=== PATIENT | female | born 1955 | race Caucasian/White ===

== ENCOUNTER 2018-04-15 15:50 | Observation (INO) | payer OTHER ==
[2018-04-15] MEDS ORDERED: hydrALAzine 20 MG INJ IV (17:30)
[2018-04-15] MEDS ORDERED: ACETAMINOPHEN 325 MG TAB PO (17:30)
[2018-04-15] MEDS ORDERED: NACL 0.9% 3 ML SYG IV (17:30)
[2018-04-15] MEDS ORDERED: ALBUTEROL/IPRATROPIUM (NEB) 3 ML AMP HHN (17:30)
[2018-04-15] MEDS ORDERED: LORAZEPAM 2 MG INJ IV (17:30)
[2018-04-15] MEDS ORDERED: ONDANSETRON 4 MG INJ IV (17:30)
[2018-04-15 18:17] LABS: HEMOGLOBIN A1C 4.9 % (0-5.9)
[2018-04-15 18:21] LABS: CREATINE KINASE 52 IU/L (23-200)
[2018-04-15 18:35] LABS: CK INDEX 0.4; CK-MB 0.23 ng/ml (0.0-2.4)
[2018-04-15 18:40] LABS: FREE T4 (FREE THYROXINE) 1.56 ng/dl (0.78-2.44)
[2018-04-15] MEDS: ZOLPIDEM 5 MG TAB PO (21:10)
[2018-04-15 22:43] LABS: AMPHETAMINE/METHAMPHETAMINE Negative (NEGATIVE); BARBITURATES Negative (NEGATIVE); BENZODIAZEPINES Negative (NEGATIVE); CANNABINOIDS Negative (NEGATIVE); COCAINE Negative (NEGATIVE); OPIATES Negative (NEGATIVE)
[2018-04-16 06:38] LABS: ADD MAN DIFF? NO
[2018-04-16 06:49] LABS: BASOPHILS % 0.5 % (0.0-2.0); EOSINOPHILS # 0.1 10^3/ul (0.0-0.5); EOSINOPHILS % 2.7 % (0.0-7.0); HEMATOCRIT 35.4 % (37.0-47.0); HEMOGLOBIN 12.2 g/dl (12.0-16.0); IMMATURE GRANS #M 0.02 10^3/ul; IMMATURE GRANS % (M) 0.5 %; LYMPHOCYTES # 2.1 10^3/ul (0.8-2.9); LYMPHOCYTES % 48.1 % (15.0-51.0); MEAN CORPUSCULAR HEMOGLOBIN 33.7 pg (29.0-33.0); MEAN CORPUSCULAR HGB CONC 34.5 g/dl (32.0-37.0); MEAN CORPUSCULAR VOLUME 97.8 fl (82.0-101.0); MEAN PLATELET VOLUME 9.7 fl (7.4-10.4); MONOCYTE # 0.2 10^3/ul (0.3-0.9); MONOCYTES % 5.2 % (0.0-11.0); NEUTROPHIL # 1.9 10^3/ul (1.6-7.5); PLATELET COUNT 101 10^3/UL (140-415); RED BLOOD COUNT 3.62 10^6/ul (4.20-5.40); RED CELL DISTRIBUTION WIDTH 15.6 % (11.5-14.5)
[2018-04-16 06:49] LABS: WHITE BLOOD COUNT 4.4 10^3/ul (4.8-10.8)
[2018-04-16 07:07] LABS: CHOL/HDL RATIO 1.9 RATIO; CHOLESTEROL 157 mg/dl (100-200); CREATINE KINASE 62 IU/L (23-200); HDL CHOLESTEROL 79 mg/dl (35-98); LDL CHOLESTEROL,CALCULATED 61 mg/dl; MAGNESIUM 1.1 mg/dl (1.7-2.5); TRIGLYCERIDES 83 mg/dl (0-149)
[2018-04-16 07:07] LABS: PHOSPHORUS 2.2 mg/dl (2.5-4.9)
[2018-04-16 07:11] LABS: ALANINE AMINOTRANSFERASE 66 IU/L (13-69); ALBUMIN 3.8 g/dl (3.3-4.9); ALBUMIN/GLOBULIN RATIO 1.18; ALKALINE PHOSPHATASE 72 IU/L (42-121); ANION GAP 15 (8-16); ASPARTATE AMINO TRANSFERASE 112 IU/L (15-46); BILIRUBIN,INDIRECT 1.7 mg/dl (0-1.1); BILIRUBIN,TOTAL 1.7 mg/dl (0.2-1.3); BLOOD UREA NITROGEN 4 mg/dl (7-20); CALCIUM 8.1 mg/dl (8.4-10.2); CARBON DIOXIDE 30 mmol/L (21-31); CHLORIDE 96 mmol/L (97-110); CREATININE 0.56 mg/dl (0.44-1.00); GLUCOSE 101 mg/dl (70-220); SODIUM 138 mmol/L (135-144)
[2018-04-16 07:14] LABS: INR 1.08; PROTIME 14.1 Sec (11.9-14.9); PT RATIO 1.1
[2018-04-16 07:15] LABS: PARTIAL THROMBOPLASTIN TIME 26.2 Sec (25.0-35.0)
[2018-04-16 07:19] LABS: CK INDEX 0.7; CK-MB 0.46 ng/ml (0.0-2.4)
[2018-04-16 07:26] LABS: POTASSIUM 2.6 mmol/L (3.5-5.1)
[2018-04-16] MEDS: POTASSIUM CHLORIDE (SR) 20 MEQ TAB PO ×2 (08:05→15:59)
[2018-04-16] MEDS: ASPIRIN 81 MG TAB PO (08:33)
[2018-04-16] MEDS: ATENOLOL 25 MG TAB PO (08:34)
[2018-04-16] MEDS: FLUTICASONE/VILANTEROL 200-25 INH DEVICE INH (08:34)
[2018-04-16] MEDS: ENOXAPARIN 40 MG/0.4 ML SYG SC (08:40)
[2018-04-16] MEDS: REGADENOSON 0.4 MG/5 ML SYG (10:18)
[2018-04-16] MEDS: MAGNESIUM SULFATE 4 GM/100 ML 100 ML IVPB (10:38)
[2018-04-16] MEDS: AMLODIPINE 5 MG TAB PO (10:50)
[2018-04-16] MEDS: POTASSIUM PHOSPHATE 20 MEQ in SOD CHLORIDE 0.9% 250 ML IVPB (16:44)
[2018-04-16] MEDS: HYDROCODONE/APAP (5/325) TAB PO (21:31)
[2018-04-17 06:18] LABS: HAAIG REFLEX REFLEX FILED
[2018-04-17 06:22] LABS: WHITE BLOOD COUNT 4.1 10^3/ul (4.8-10.8)
[2018-04-17 06:22] LABS: ABNORMAL IP MESSAGE 1; ADD MAN DIFF? NO; BASOPHIL # 0.1 10^3/ul (0.0-0.1); BASOPHILS % 1.2 % (0.0-2.0); EOSINOPHILS # 0.2 10^3/ul (0.0-0.5); HEMATOCRIT 32.8 % (37.0-47.0); HEMOGLOBIN 10.8 g/dl (12.0-16.0); IMMATURE GRANS #M 0.02 10^3/ul; IMMATURE GRANS % (M) 0.5 %; LYMPHOCYTES # 1.8 10^3/ul (0.8-2.9); LYMPHOCYTES % 43.5 % (15.0-51.0); MEAN CORPUSCULAR HEMOGLOBIN 32.5 pg (29.0-33.0); MEAN CORPUSCULAR HGB CONC 32.9 g/dl (32.0-37.0); MEAN CORPUSCULAR VOLUME 98.8 fl (82.0-101.0); MEAN PLATELET VOLUME 10.4 fl (7.4-10.4); MONOCYTE # 0.3 10^3/ul (0.3-0.9); MONOCYTES % 7.2 % (0.0-11.0); NEUTROPHIL # 1.8 10^3/ul (1.6-7.5); NEUTROPHILS % 43.6 % (39.0-77.0); PLATELET COUNT 87 10^3/UL (140-415); RED BLOOD COUNT 3.32 10^6/ul (4.20-5.40); RED CELL DISTRIBUTION WIDTH 15.8 % (11.5-14.5)
[2018-04-17 06:30] LABS: POSITIVE DIFF @See below
[2018-04-17 06:40] LABS: ALANINE AMINOTRANSFERASE 47 IU/L (13-69); ALBUMIN 3.5 g/dl (3.3-4.9); ALBUMIN/GLOBULIN RATIO 1.29; ALKALINE PHOSPHATASE 56 IU/L (42-121); ANION GAP 13 (8-16); ASPARTATE AMINO TRANSFERASE 70 IU/L (15-46); BILIRUBIN,INDIRECT 0.8 mg/dl (0-1.1); BILIRUBIN,TOTAL 0.8 mg/dl (0.2-1.3); BLOOD UREA NITROGEN 3 mg/dl (7-20); CALCIUM 8.1 mg/dl (8.4-10.2); CARBON DIOXIDE 29 mmol/L (21-31); CHLORIDE 98 mmol/L (97-110); CREATININE 0.46 mg/dl (0.44-1.00); GLUCOSE 101 mg/dl (70-220); POTASSIUM 3.3 mmol/L (3.5-5.1); SODIUM 137 mmol/L (135-144); TOTAL PROTEIN 6.2 g/dl (6.1-8.1)
[2018-04-17 06:45] LABS: MAGNESIUM 2.2 mg/dl (1.7-2.5)
[2018-04-17 07:07] LABS: HEPATITIS B SURFACE ANTIGEN NEGATIVE (NEGATIVE)
[2018-04-17 07:26] LABS: HEPATITIS B CORE ANTIBODY NEGATIVE (NEGATIVE); HEPATITIS C VIRAL ANTIBODY NEGATIVE (NEGATIVE)
[2018-04-17] MEDS: AMLODIPINE 5 MG TAB PO (08:15)
[2018-04-17] MEDS: ASPIRIN 81 MG TAB PO (08:15)
[2018-04-17] MEDS: POTASSIUM CHLORIDE (SR) 20 MEQ TAB PO (08:17)
[2018-04-17] MEDS: FLUTICASONE/VILANTEROL 200-25 INH DEVICE INH (08:17)
[2018-04-17] MEDS: ENOXAPARIN 40 MG/0.4 ML SYG SC (08:43)
== END 2018-04-17 16:20 | disposition home or self-care (01) ==
LOC: 6WM 15:50
DX: R07.89 Other chest pain (principal); J44.9 Chronic obstructive pulmonary disease, unspecified; I10 Essential (primary) hypertension; I16.0 Hypertensive urgency; D61.818 Other pancytopenia; E87.8 Other disorders of electrolyte and fluid balance, not elsewhere classified; R74.0 Nonspecific elevation of levels of transaminase and lactic acid dehydrogenase [LDH]; F10.10 Alcohol abuse, uncomplicated; R06.02 Shortness of breath; K76.0 Fatty (change of) liver, not elsewhere classified; Z87.891 Personal history of nicotine dependence
CPT/HCPCS: 76705; 78452; 80053; 80061; 80307; 82550; 82553; 83036; 83735; 84100; 84132; 84439; 84443; 84484; 85025; 85610; 85730; 86704; 86708; 86709; 86803; 87340; 93005; 93017; 93306; 99217; G0378

== ENCOUNTER 2018-10-25 03:44 | Inpatient (IN) | payer OTHER ==
[2018-10-25] MEDS ORDERED: NITROGLYCERIN (SL) 0.4 MG TAB SL (05:00)
[2018-10-25] MEDS ORDERED: morphine 2 MG INJ IV (05:00)
[2018-10-25] MEDS ORDERED: ONDANSETRON 4 MG INJ IV (05:00)
[2018-10-25] MEDS ORDERED: NACL 0.9% 3 ML SYG IV (05:00)
[2018-10-25] MEDS ORDERED: MAGNESIUM HYDROXIDE 30ML CUP PO (05:00)
[2018-10-25] MEDS ORDERED: DOCUSATE SODIUM 100 MG CAP PO (05:00)
[2018-10-25] MEDS: PANTOPRAZOLE (EC) 40 MG TAB PO (05:37)
[2018-10-25 07:09] LABS: ANION GAP 3 (5-13); BLOOD UREA NITROGEN 8 mg/dl (7-20); CARBON DIOXIDE 34 mmol/L (21-31); CHLORIDE 101 mmol/L (97-110); Estimated GFR > 60 mL/min (>60); GLUCOSE 93 mg/dl (70-220); POTASSIUM 3.3 mmol/L (3.5-5.1); SODIUM 138 mmol/L (135-144)
[2018-10-25 07:12] LABS: MAGNESIUM 1.7 mg/dl (1.7-2.5)
[2018-10-25 07:20] LABS: CK-MB 0.46 ng/ml (0.0-2.4); TROPONIN-I 0.024 ng/ml (0.000-0.120)
[2018-10-25 07:25] LABS: CREATINE KINASE < 20 IU/L (23-200)
[2018-10-25] MEDS: ALBUTEROL 0.083% (NEB) 2.5 MG/3 ML AMP HHN (07:43)
[2018-10-25] MEDS: AMLODIPINE 5 MG TAB PO (08:58)
[2018-10-25] MEDS: APIXABAN 5 MG TABLET PO ×2 (08:58→20:33)
[2018-10-25] MEDS: FLUTICASONE/VILANTEROL 100-25 INH (08:58)
[2018-10-25] MEDS: FUROSEMIDE 40 MG INJ IV (08:59)
[2018-10-25] MEDS ORDERED: LACTULOSE 30ML CUP PO (09:00)
[2018-10-25] MEDS ORDERED: ENOXAPARIN 40 MG/0.4 ML SYG SC (09:00)
[2018-10-25 09:10] LABS: B-TYPE NATRIURETIC PEPTIDE 778 PG/ML (0-125)
[2018-10-25] MEDS: POTASSIUM CHLORIDE (SR) 20 MEQ TAB PO (09:18)
[2018-10-25 12:15] LABS: TROPONIN-I 0.024 ng/ml (0.000-0.120)
[2018-10-25 12:33] LABS: CREATINE KINASE < 20 IU/L (23-200)
[2018-10-25] MEDS ORDERED: DIGOXIN 0.125 MG TAB PO (13:00)
[2018-10-25] MEDS ORDERED: morphine LIQ (10 MG/5 ML) CUP PO (20:30)
[2018-10-26] MEDS: PANTOPRAZOLE (EC) 40 MG TAB PO (05:42)
[2018-10-26 05:56] LABS: ADD MAN DIFF? NO
[2018-10-26 06:04] LABS: BASOPHILS % 0.4 % (0.0-2.0); EOSINOPHILS # 0.2 10^3/ul (0.0-0.5); EOSINOPHILS % 2.1 % (0.0-7.0); HEMATOCRIT 26.2 % (37.0-47.0); HEMOGLOBIN 8.8 g/dl (12.0-16.0); LYMPHOCYTES # 2.4 10^3/ul (0.8-2.9); LYMPHOCYTES % 31.4 % (15.0-51.0); MEAN CORPUSCULAR HEMOGLOBIN 32.1 pg (29.0-33.0); MEAN CORPUSCULAR HGB CONC 33.6 g/dl (32.0-37.0); MEAN CORPUSCULAR VOLUME 95.6 fl (82.0-101.0); MEAN PLATELET VOLUME 10.6 fl (7.4-10.4); MONOCYTE # 0.7 10^3/ul (0.3-0.9); MONOCYTES % 8.6 % (0.0-11.0); NEUTROPHIL # 4.3 10^3/ul (1.6-7.5); NEUTROPHILS % 57.1 % (39.0-77.0); PLATELET COUNT 198 10^3/UL (140-415); RED BLOOD COUNT 2.74 10^6/ul (4.20-5.40)
[2018-10-26 06:04] LABS: WHITE BLOOD COUNT 7.6 10^3/ul (4.8-10.8)
[2018-10-26 06:33] LABS: ANION GAP 9 (5-13); BLOOD UREA NITROGEN 7 mg/dl (7-20); CALCIUM 7.6 mg/dl (8.4-10.2); CARBON DIOXIDE 31 mmol/L (21-31); CHLORIDE 97 mmol/L (97-110); CHOLESTEROL 92 mg/dl (100-200); CREATININE 0.63 mg/dl (0.44-1.00); Estimated GFR > 60 mL/min (>60); GLUCOSE 96 mg/dl (70-220); HDL CHOLESTEROL 13 mg/dl (35-98); LDL CHOLESTEROL,CALCULATED 64 mg/dl; MAGNESIUM 1.6 mg/dl (1.7-2.5); POTASSIUM 3.2 mmol/L (3.5-5.1); SODIUM 137 mmol/L (135-144); TRIGLYCERIDES 76 mg/dl (0-149)
[2018-10-26 07:11] LABS: HEMOGLOBIN A1C 4.5 % (0-5.9)
[2018-10-26] MEDS: APIXABAN 5 MG TABLET PO ×2 (08:35→20:00)
[2018-10-26] MEDS: FLUTICASONE/VILANTEROL 100-25 INH (08:36)
[2018-10-26] MEDS: MAGNESIUM SULFATE 2 GM/50 ML 50 ML IVPB (09:45)
[2018-10-26] MEDS: POTASSIUM CHLORIDE (SR) 20 MEQ TAB PO (09:45)
[2018-10-26] MEDS: SPIRONOLACTONE 25 MG TAB PO (18:13)
[2018-10-26] MEDS: FUROSEMIDE 20 MG INJ IV (18:13)
[2018-10-27] MEDS: FUROSEMIDE 20 MG INJ IV ×2 (05:13→17:40)
[2018-10-27] MEDS: SPIRONOLACTONE 25 MG TAB PO ×2 (05:13→17:42)
[2018-10-27] MEDS: PANTOPRAZOLE (EC) 40 MG TAB PO (05:13)
[2018-10-27 06:27] LABS: ADD MAN DIFF? NO
[2018-10-27 06:33] LABS: BASOPHILS % 0.3 % (0.0-2.0); EOSINOPHILS # 0.1 10^3/ul (0.0-0.5); EOSINOPHILS % 1.5 % (0.0-7.0); HEMATOCRIT 29.1 % (37.0-47.0); HEMOGLOBIN 9.6 g/dl (12.0-16.0); LYMPHOCYTES # 2.5 10^3/ul (0.8-2.9); LYMPHOCYTES % 27.2 % (15.0-51.0); MEAN CORPUSCULAR HEMOGLOBIN 31.5 pg (29.0-33.0); MEAN CORPUSCULAR VOLUME 95.4 fl (82.0-101.0); MEAN PLATELET VOLUME 11.2 fl (7.4-10.4); MONOCYTE # 0.9 10^3/ul (0.3-0.9); MONOCYTES % 9.3 % (0.0-11.0); NEUTROPHIL # 5.6 10^3/ul (1.6-7.5); NEUTROPHILS % 61.4 % (39.0-77.0); PLATELET COUNT 211 10^3/UL (140-415); RED BLOOD COUNT 3.05 10^6/ul (4.20-5.40); RED CELL DISTRIBUTION WIDTH 15.3 % (11.5-14.5)
[2018-10-27 06:33] LABS: WHITE BLOOD COUNT 9.2 10^3/ul (4.8-10.8)
[2018-10-27 07:00] LABS: ALBUMIN 2.2 g/dl (3.3-4.9); ANION GAP 4 (5-13); BLOOD UREA NITROGEN 9 mg/dl (7-20); CALCIUM 7.8 mg/dl (8.4-10.2); CARBON DIOXIDE 34 mmol/L (21-31); CHLORIDE 98 mmol/L (97-110); CREATININE 0.71 mg/dl (0.44-1.00); GLUCOSE 92 mg/dl (70-220); MAGNESIUM 1.8 mg/dl (1.7-2.5); PHOSPHORUS 3.5 mg/dl (2.5-4.9); POTASSIUM 3.8 mmol/L (3.5-5.1); SODIUM 136 mmol/L (135-144)
[2018-10-27] MEDS: APIXABAN 5 MG TABLET PO ×2 (08:50→20:35)
[2018-10-27] MEDS: FLUTICASONE/VILANTEROL 100-25 INH (08:50)
[2018-10-27] MEDS: GABAPENTIN 100 MG CAP PO ×2 (12:12→20:35)
[2018-10-27] MEDS: POTASSIUM CHLORIDE (SR) 20 MEQ TAB PO (15:00)
[2018-10-27] MEDS: METOPROLOL 25 MG TAB PO ×2 (15:01→22:00)
[2018-10-27] MEDS: MAGNESIUM SULFATE 2 GM/50 ML 50 ML IVPB (16:10)
[2018-10-28] MEDS: SPIRONOLACTONE 25 MG TAB PO ×2 (05:40→18:11)
[2018-10-28] MEDS: METOPROLOL 25 MG TAB PO ×3 (05:40→22:00)
[2018-10-28] MEDS: FUROSEMIDE 20 MG INJ IV (05:40)
[2018-10-28] MEDS: PANTOPRAZOLE (EC) 40 MG TAB PO (05:42)
[2018-10-28 06:12] LABS: ADD MAN DIFF? NO
[2018-10-28 06:19] LABS: WHITE BLOOD COUNT 10.2 10^3/ul (4.8-10.8)
[2018-10-28 06:19] LABS: BASOPHILS % 0.4 % (0.0-2.0); EOSINOPHILS # 0.2 10^3/ul (0.0-0.5); EOSINOPHILS % 2.2 % (0.0-7.0); HEMATOCRIT 27.7 % (37.0-47.0); HEMOGLOBIN 9.2 g/dl (12.0-16.0); LYMPHOCYTES % 29.7 % (15.0-51.0); MEAN CORPUSCULAR HEMOGLOBIN 31.8 pg (29.0-33.0); MEAN CORPUSCULAR HGB CONC 33.2 g/dl (32.0-37.0); MEAN CORPUSCULAR VOLUME 95.8 fl (82.0-101.0); MEAN PLATELET VOLUME 10.8 fl (7.4-10.4); MONOCYTE # 0.9 10^3/ul (0.3-0.9); MONOCYTES % 8.8 % (0.0-11.0); NEUTROPHILS % 58.4 % (39.0-77.0); PLATELET COUNT 198 10^3/UL (140-415); RED BLOOD COUNT 2.89 10^6/ul (4.20-5.40); RED CELL DISTRIBUTION WIDTH 15.3 % (11.5-14.5)
[2018-10-28 07:10] LABS: ALBUMIN 1.9 g/dl (3.3-4.9); ANION GAP 7 (5-13); BLOOD UREA NITROGEN 11 mg/dl (7-20); CALCIUM 7.8 mg/dl (8.4-10.2); CARBON DIOXIDE 30 mmol/L (21-31); CHLORIDE 98 mmol/L (97-110); CREATININE 0.68 mg/dl (0.44-1.00); GLUCOSE 83 mg/dl (70-220); MAGNESIUM 2.1 mg/dl (1.7-2.5); PHOSPHORUS 3.7 mg/dl (2.5-4.9); SODIUM 135 mmol/L (135-144)
[2018-10-28] MEDS: FLUTICASONE/VILANTEROL 100-25 INH (08:26)
[2018-10-28] MEDS: GABAPENTIN 100 MG CAP PO (08:26)
[2018-10-28] MEDS: APIXABAN 5 MG TABLET PO ×2 (08:26→20:48)
[2018-10-28] MEDS: FUROSEMIDE 20 MG TAB PO (18:11)
[2018-10-28] MEDS: GABAPENTIN 300 MG CAP PO (20:48)
[2018-10-29 06:06] LABS: ADD MAN DIFF? NO
[2018-10-29] MEDS: PANTOPRAZOLE (EC) 40 MG TAB PO (06:08)
[2018-10-29] MEDS: METOPROLOL 25 MG TAB PO ×3 (06:08→21:12)
[2018-10-29] MEDS: FUROSEMIDE 20 MG TAB PO ×2 (06:09→18:00)
[2018-10-29] MEDS: SPIRONOLACTONE 25 MG TAB PO ×2 (06:09→18:35)
[2018-10-29 06:25] LABS: WHITE BLOOD COUNT 10.9 10^3/ul (4.8-10.8)
[2018-10-29 06:25] LABS: BASOPHILS % 0.3 % (0.0-2.0); EOSINOPHILS # 0.2 10^3/ul (0.0-0.5); EOSINOPHILS % 1.7 % (0.0-7.0); HEMATOCRIT 28.9 % (37.0-47.0); HEMOGLOBIN 9.6 g/dl (12.0-16.0); LYMPHOCYTES % 27.3 % (15.0-51.0); MEAN CORPUSCULAR HEMOGLOBIN 31.5 pg (29.0-33.0); MEAN CORPUSCULAR HGB CONC 33.2 g/dl (32.0-37.0); MEAN CORPUSCULAR VOLUME 94.8 fl (82.0-101.0); MONOCYTES % 8.7 % (0.0-11.0); NEUTROPHIL # 6.7 10^3/ul (1.6-7.5); NEUTROPHILS % 61.4 % (39.0-77.0); PLATELET COUNT 234 10^3/UL (140-415); RED BLOOD COUNT 3.05 10^6/ul (4.20-5.40)
[2018-10-29 06:46] LABS: ALBUMIN 2.2 g/dl (3.3-4.9); ANION GAP 5 (5-13); BLOOD UREA NITROGEN 12 mg/dl (7-20); CALCIUM 8.1 mg/dl (8.4-10.2); CARBON DIOXIDE 30 mmol/L (21-31); CHLORIDE 98 mmol/L (97-110); CREATININE 0.81 mg/dl (0.44-1.00); GLUCOSE 96 mg/dl (70-220); MAGNESIUM 1.9 mg/dl (1.7-2.5); PHOSPHORUS 3.8 mg/dl (2.5-4.9); SODIUM 133 mmol/L (135-144)
[2018-10-29 08:07] LABS: POTASSIUM 3.9 mmol/L (3.5-5.1)
[2018-10-29] MEDS: APIXABAN 5 MG TABLET PO ×2 (09:44→21:12)
[2018-10-29] MEDS: FLUTICASONE/VILANTEROL 100-25 INH (09:44)
[2018-10-30] MEDS: SPIRONOLACTONE 25 MG TAB PO ×2 (05:50→17:49)
[2018-10-30] MEDS: FUROSEMIDE 20 MG TAB PO ×2 (05:50→17:49)
[2018-10-30] MEDS: PANTOPRAZOLE (EC) 40 MG TAB PO (05:50)
[2018-10-30] MEDS: METOPROLOL 25 MG TAB PO ×3 (05:51→21:05)
[2018-10-30 05:54] LABS: ADD MAN DIFF? NO
[2018-10-30 06:04] LABS: BASOPHIL # 0.1 10^3/ul (0.0-0.1); BASOPHILS % 0.5 % (0.0-2.0); EOSINOPHILS # 0.2 10^3/ul (0.0-0.5); EOSINOPHILS % 1.3 % (0.0-7.0); HEMATOCRIT 28.6 % (37.0-47.0); HEMOGLOBIN 9.4 g/dl (12.0-16.0); LYMPHOCYTES # 2.9 10^3/ul (0.8-2.9); LYMPHOCYTES % 23.9 % (15.0-51.0); MEAN CORPUSCULAR HEMOGLOBIN 31.1 pg (29.0-33.0); MEAN CORPUSCULAR HGB CONC 32.9 g/dl (32.0-37.0); MEAN CORPUSCULAR VOLUME 94.7 fl (82.0-101.0); MEAN PLATELET VOLUME 10.9 fl (7.4-10.4); MONOCYTE # 1.2 10^3/ul (0.3-0.9); MONOCYTES % 9.7 % (0.0-11.0); NEUTROPHIL # 7.7 10^3/ul (1.6-7.5); NEUTROPHILS % 63.9 % (39.0-77.0); PLATELET COUNT 247 10^3/UL (140-415); RED BLOOD COUNT 3.02 10^6/ul (4.20-5.40); RED CELL DISTRIBUTION WIDTH 15.4 % (11.5-14.5)
[2018-10-30 06:33] LABS: ALBUMIN 2.2 g/dl (3.3-4.9); ANION GAP 8 (5-13); BLOOD UREA NITROGEN 15 mg/dl (7-20); CARBON DIOXIDE 30 mmol/L (21-31); CHLORIDE 99 mmol/L (97-110); CREATININE 0.69 mg/dl (0.44-1.00); GLUCOSE 100 mg/dl (70-220); MAGNESIUM 1.9 mg/dl (1.7-2.5); PHOSPHORUS 3.8 mg/dl (2.5-4.9); POTASSIUM 3.3 mmol/L (3.5-5.1); SODIUM 137 mmol/L (135-144)
[2018-10-30] MEDS: FLUTICASONE/VILANTEROL 100-25 INH (08:24)
[2018-10-30] MEDS: APIXABAN 5 MG TABLET PO ×2 (08:25→21:05)
[2018-10-30 08:55] LABS: ADD UMIC YES; UR ASCORBIC ACID 40 mg/dL (NEGATIVE); UR BACTERIA MANY /HPF (NONE SEEN); UR BILIRUBIN (Dip) NEGATIVE (NEGATIVE); UR BLOOD (Dip) NEGATIVE (NEGATIVE); UR CLARITY CLOUDY (CLEAR); UR COLOR RED (YELLOW); UR GLUCOSE (Dip) NEGATIVE (NEGATIVE); UR KETONES (Dip) TRACE mg/dL (NEGATIVE); UR LEUKOCYTE ESTERASE (Dip) 1+ Leu/ul (NEGATIVE); UR MUCUS FEW /HPF (NONE SEEN); UR NITRITE (Dip) NEGATIVE (NEGATIVE); UR NONSQUAMOUS EPITHELIAL CELL 2 /HPF (NONE SEEN); UR RBC 1 /HPF (0-5); UR SPECIFIC GRAVITY (Dip) 1.018 (1.003-1.030); UR SQUAMOUS EPITHELIAL CELL MODERATE /HPF (FEW); UR TOTAL PROTEIN (Dip) NEGATIVE (NEGATIVE); UR UROBILINOGEN (Dip) 2+ mg/dL (NEGATIVE); UR WBC 130 /HPF (0-5)
[2018-10-30] MEDS: POTASSIUM CHLORIDE (SR) 20 MEQ TAB PO (09:34)
[2018-10-30] MEDS: CEFTRIAXONE 1 GM/50 ML (PMX) 50 ML IVPB (23:56)
[2018-10-31] MEDS: SPIRONOLACTONE 25 MG TAB PO ×2 (05:41→17:48)
[2018-10-31] MEDS: METOPROLOL 25 MG TAB PO ×2 (05:41→20:30)
[2018-10-31] MEDS: PANTOPRAZOLE (EC) 40 MG TAB PO (05:55)
[2018-10-31] MEDS: FUROSEMIDE 20 MG TAB PO ×2 (05:55→17:48)
[2018-10-31 06:07] LABS: ADD MAN DIFF? NO
[2018-10-31 06:13] LABS: WHITE BLOOD COUNT 12.2 10^3/ul (4.8-10.8)
[2018-10-31 06:13] LABS: BASOPHILS % 0.2 % (0.0-2.0); EOSINOPHILS # 0.2 10^3/ul (0.0-0.5); EOSINOPHILS % 1.5 % (0.0-7.0); HEMATOCRIT 27.8 % (37.0-47.0); HEMOGLOBIN 9.2 g/dl (12.0-16.0); LYMPHOCYTES # 2.9 10^3/ul (0.8-2.9); LYMPHOCYTES % 23.5 % (15.0-51.0); MEAN CORPUSCULAR HEMOGLOBIN 31.5 pg (29.0-33.0); MEAN CORPUSCULAR HGB CONC 33.1 g/dl (32.0-37.0); MEAN CORPUSCULAR VOLUME 95.2 fl (82.0-101.0); MEAN PLATELET VOLUME 10.9 fl (7.4-10.4); MONOCYTE # 1.4 10^3/ul (0.3-0.9); MONOCYTES % 11.7 % (0.0-11.0); NEUTROPHIL # 7.6 10^3/ul (1.6-7.5); NEUTROPHILS % 62.6 % (39.0-77.0); PLATELET COUNT 262 10^3/UL (140-415); RED BLOOD COUNT 2.92 10^6/ul (4.20-5.40); RED CELL DISTRIBUTION WIDTH 15.7 % (11.5-14.5)
[2018-10-31 06:54] LABS: ANION GAP 4 (5-13); BLOOD UREA NITROGEN 17 mg/dl (7-20); CARBON DIOXIDE 31 mmol/L (21-31); CHLORIDE 101 mmol/L (97-110); CREATININE 0.67 mg/dl (0.44-1.00); GLUCOSE 89 mg/dl (70-220); MAGNESIUM 1.9 mg/dl (1.7-2.5); PHOSPHORUS 3.9 mg/dl (2.5-4.9); POTASSIUM 4.1 mmol/L (3.5-5.1); SODIUM 136 mmol/L (135-144)
[2018-10-31] MEDS: FLUTICASONE/VILANTEROL 100-25 INH (08:36)
[2018-10-31] MEDS: APIXABAN 5 MG TABLET PO (08:36)
[2018-10-31] MEDS: POTASSIUM CHLORIDE (SR) 20 MEQ TAB PO (08:37)
[2018-10-31] MEDS: HYDROCODONE/APAP (5/325) TAB PO (08:41)
[2018-10-31] MEDS: CEFTRIAXONE 1 GM/50 ML (PMX) 50 ML IVPB (22:31)
[2018-11-01] MEDS: PANTOPRAZOLE (EC) 40 MG TAB PO (05:40)
[2018-11-01] MEDS: SPIRONOLACTONE 25 MG TAB PO ×2 (05:40→18:01)
[2018-11-01] MEDS: FUROSEMIDE 20 MG TAB PO (05:41)
[2018-11-01 05:42] LABS: ADD MAN DIFF? NO
[2018-11-01 05:48] LABS: BASOPHIL # 0.1 10^3/ul (0.0-0.1); BASOPHILS % 0.5 % (0.0-2.0); EOSINOPHILS # 0.1 10^3/ul (0.0-0.5); EOSINOPHILS % 1.3 % (0.0-7.0); LYMPHOCYTES # 2.9 10^3/ul (0.8-2.9); LYMPHOCYTES % 26.5 % (15.0-51.0); MEAN CORPUSCULAR HGB CONC 33.3 g/dl (32.0-37.0); MEAN CORPUSCULAR VOLUME 93.1 fl (82.0-101.0); MEAN PLATELET VOLUME 10.6 fl (7.4-10.4); MONOCYTE # 1.3 10^3/ul (0.3-0.9); MONOCYTES % 11.8 % (0.0-11.0); NEUTROPHIL # 6.4 10^3/ul (1.6-7.5); NEUTROPHILS % 59.2 % (39.0-77.0); PLATELET COUNT 255 10^3/UL (140-415); RED CELL DISTRIBUTION WIDTH 16.1 % (11.5-14.5)
[2018-11-01 05:48] LABS: WHITE BLOOD COUNT 10.8 10^3/ul (4.8-10.8)
[2018-11-01 06:16] LABS: ALANINE AMINOTRANSFERASE 28 IU/L (13-69); ALBUMIN 1.9 g/dl (3.3-4.9); ALKALINE PHOSPHATASE 67 IU/L (42-121); ASPARTATE AMINO TRANSFERASE 43 IU/L (15-46); BILIRUBIN,INDIRECT 0.6 mg/dl (0-1.1); BILIRUBIN,TOTAL 0.6 mg/dl (0.2-1.3); TOTAL PROTEIN 5.2 g/dl (6.1-8.1)
[2018-11-01 06:31] LABS: ANION GAP 7 (5-13); BLOOD UREA NITROGEN 17 mg/dl (7-20); CARBON DIOXIDE 29 mmol/L (21-31); CHLORIDE 100 mmol/L (97-110); CREATININE 0.66 mg/dl (0.44-1.00); GLUCOSE 86 mg/dl (70-220); MAGNESIUM 1.7 mg/dl (1.7-2.5); PHOSPHORUS 4.3 mg/dl (2.5-4.9); POTASSIUM 3.8 mmol/L (3.5-5.1); SODIUM 136 mmol/L (135-144)
[2018-11-01] MEDS: METOPROLOL 25 MG TAB PO ×2 (09:21→20:32)
[2018-11-01] MEDS: POTASSIUM CHLORIDE (SR) 20 MEQ TAB PO (09:21)
[2018-11-01] MEDS: FLUTICASONE/VILANTEROL 100-25 INH (09:23)
[2018-11-01] MEDS: CEFTRIAXONE 1 GM/50 ML (PMX) 50 ML IVPB (23:42)
[2018-11-02] MEDS: PANTOPRAZOLE (EC) 40 MG TAB PO (06:06)
[2018-11-02] MEDS: SPIRONOLACTONE 25 MG TAB PO (06:06)
[2018-11-02 06:13] LABS: ADD MAN DIFF? NO
[2018-11-02 06:26] LABS: BASOPHILS % 0.3 % (0.0-2.0); EOSINOPHILS # 0.1 10^3/ul (0.0-0.5); EOSINOPHILS % 1.4 % (0.0-7.0); HEMATOCRIT 26.1 % (37.0-47.0); HEMOGLOBIN 8.6 g/dl (12.0-16.0); LYMPHOCYTES # 2.5 10^3/ul (0.8-2.9); LYMPHOCYTES % 28.3 % (15.0-51.0); MEAN CORPUSCULAR HEMOGLOBIN 30.4 pg (29.0-33.0); MEAN CORPUSCULAR VOLUME 92.2 fl (82.0-101.0); MEAN PLATELET VOLUME 10.6 fl (7.4-10.4); MONOCYTE # 1.2 10^3/ul (0.3-0.9); MONOCYTES % 12.9 % (0.0-11.0); NEUTROPHIL # 5.1 10^3/ul (1.6-7.5); NEUTROPHILS % 56.7 % (39.0-77.0); PLATELET COUNT 257 10^3/UL (140-415); RED BLOOD COUNT 2.83 10^6/ul (4.20-5.40); RED CELL DISTRIBUTION WIDTH 16.6 % (11.5-14.5)
[2018-11-02 06:37] LABS: ANION GAP 6 (5-13); BLOOD UREA NITROGEN 16 mg/dl (7-20); CALCIUM 7.9 mg/dl (8.4-10.2); CARBON DIOXIDE 28 mmol/L (21-31); CHLORIDE 101 mmol/L (97-110); CREATININE 0.58 mg/dl (0.44-1.00); Estimated GFR > 60 mL/min (>60); GLUCOSE 90 mg/dl (70-220); MAGNESIUM 1.8 mg/dl (1.7-2.5); PHOSPHORUS 3.9 mg/dl (2.5-4.9); POTASSIUM 4.1 mmol/L (3.5-5.1); SODIUM 135 mmol/L (135-144)
[2018-11-02] MEDS: FLUTICASONE/VILANTEROL 100-25 INH (08:47)
[2018-11-02] MEDS: POTASSIUM CHLORIDE 20 MEQ POWDER FOR ORAL SOLN PO (08:48)
[2018-11-02] MEDS: FUROSEMIDE 20 MG TAB PO (08:50)
[2018-11-02] MEDS: METOPROLOL 25 MG TAB PO ×2 (08:51→20:35)
[2018-11-02 12:08] LABS: PLATELET COUNT 272 10^3/UL (140-415)
[2018-11-02 12:26] LABS: INR 1.31; PARTIAL THROMBOPLASTIN TIME 35.2 Sec (23.0-35.0); PROTIME 16.4 Sec (11.9-14.9); PT RATIO 1.3; THROMBIN TIME 17.7 SEC (13.8-19.1)
[2018-11-02] MEDS: APIXABAN 5 MG TABLET PO (21:11)
[2018-11-03] MEDS: PANTOPRAZOLE (EC) 40 MG TAB PO (05:22)
[2018-11-03] MEDS: METOPROLOL 25 MG TAB PO ×2 (09:04→20:00)
[2018-11-03] MEDS: FUROSEMIDE 20 MG TAB PO (09:04)
[2018-11-03] MEDS: APIXABAN 5 MG TABLET PO (09:04)
[2018-11-03] MEDS: SPIRONOLACTONE 25 MG TAB PO (09:04)
[2018-11-03] MEDS: POTASSIUM CHLORIDE 20 MEQ POWDER FOR ORAL SOLN PO (09:05)
[2018-11-03] MEDS: FLUTICASONE/VILANTEROL 100-25 INH (09:06)
[2018-11-03 10:15] LABS: ADD MAN DIFF? NO
[2018-11-03 10:18] LABS: WHITE BLOOD COUNT 8.2 10^3/ul (4.8-10.8)
[2018-11-03 10:19] LABS: BASOPHILS % 0.5 % (0.0-2.0); EOSINOPHILS # 0.1 10^3/ul (0.0-0.5); EOSINOPHILS % 1.2 % (0.0-7.0); HEMATOCRIT 29.9 % (37.0-47.0); HEMOGLOBIN 9.7 g/dl (12.0-16.0); LYMPHOCYTES # 2.4 10^3/ul (0.8-2.9); LYMPHOCYTES % 29.4 % (15.0-51.0); MEAN CORPUSCULAR HEMOGLOBIN 30.3 pg (29.0-33.0); MEAN CORPUSCULAR HGB CONC 32.4 g/dl (32.0-37.0); MEAN CORPUSCULAR VOLUME 93.4 fl (82.0-101.0); MEAN PLATELET VOLUME 10.6 fl (7.4-10.4); MONOCYTE # 0.8 10^3/ul (0.3-0.9); MONOCYTES % 9.5 % (0.0-11.0); NEUTROPHIL # 4.9 10^3/ul (1.6-7.5); NEUTROPHILS % 59.2 % (39.0-77.0); PLATELET COUNT 298 10^3/UL (140-415); RED CELL DISTRIBUTION WIDTH 16.7 % (11.5-14.5)
[2018-11-03 10:37] LABS: MAGNESIUM 1.8 mg/dl (1.7-2.5)
[2018-11-03 10:37] LABS: ALANINE AMINOTRANSFERASE 23 IU/L (13-69); ALBUMIN 2.4 g/dl (3.3-4.9); ALBUMIN/GLOBULIN RATIO 0.63; ALKALINE PHOSPHATASE 99 IU/L (42-121); ANION GAP 8 (5-13); ASPARTATE AMINO TRANSFERASE 49 IU/L (15-46); BILIRUBIN,INDIRECT 0.4 mg/dl (0-1.1); BILIRUBIN,TOTAL 0.4 mg/dl (0.2-1.3); BLOOD UREA NITROGEN 14 mg/dl (7-20); CALCIUM 8.3 mg/dl (8.4-10.2); CARBON DIOXIDE 26 mmol/L (21-31); CHLORIDE 103 mmol/L (97-110); CREATININE 0.65 mg/dl (0.44-1.00); Estimated GFR > 60 mL/min (>60); GLUCOSE 105 mg/dl (70-220); SODIUM 137 mmol/L (135-144); TOTAL PROTEIN 6.2 g/dl (6.1-8.1)
[2018-11-03] MEDS: ACETAMINOPHEN 325 MG TAB PO (23:38)
[2018-11-04 05:40] LABS: ADD MAN DIFF? NO
[2018-11-04 05:42] LABS: WHITE BLOOD COUNT 6.7 10^3/ul (4.8-10.8)
[2018-11-04 05:42] LABS: BASOPHILS % 0.3 % (0.0-2.0); EOSINOPHILS # 0.1 10^3/ul (0.0-0.5); EOSINOPHILS % 2.1 % (0.0-7.0); HEMATOCRIT 26.1 % (37.0-47.0); HEMOGLOBIN 8.6 g/dl (12.0-16.0); LYMPHOCYTES # 2.1 10^3/ul (0.8-2.9); LYMPHOCYTES % 31.7 % (15.0-51.0); MEAN CORPUSCULAR HEMOGLOBIN 30.6 pg (29.0-33.0); MEAN CORPUSCULAR VOLUME 92.9 fl (82.0-101.0); MEAN PLATELET VOLUME 10.2 fl (7.4-10.4); MONOCYTE # 0.7 10^3/ul (0.3-0.9); MONOCYTES % 9.9 % (0.0-11.0); NEUTROPHIL # 3.7 10^3/ul (1.6-7.5); NEUTROPHILS % 55.7 % (39.0-77.0); PLATELET COUNT 255 10^3/UL (140-415); RED BLOOD COUNT 2.81 10^6/ul (4.20-5.40)
[2018-11-04] MEDS: PANTOPRAZOLE (EC) 40 MG TAB PO (05:45)
[2018-11-04 06:06] LABS: ANION GAP 8 (5-13); BLOOD UREA NITROGEN 13 mg/dl (7-20); CARBON DIOXIDE 26 mmol/L (21-31); CHLORIDE 102 mmol/L (97-110); CREATININE 0.65 mg/dl (0.44-1.00); Estimated GFR > 60 mL/min (>60); GLUCOSE 88 mg/dl (70-220); MAGNESIUM 1.7 mg/dl (1.7-2.5); PHOSPHORUS 4.4 mg/dl (2.5-4.9); POTASSIUM 4.2 mmol/L (3.5-5.1); SODIUM 136 mmol/L (135-144)
[2018-11-04] MEDS: FLUTICASONE/VILANTEROL 100-25 INH (08:57)
[2018-11-04] MEDS: SPIRONOLACTONE 25 MG TAB PO (08:57)
[2018-11-04] MEDS: POTASSIUM CHLORIDE 20 MEQ POWDER FOR ORAL SOLN PO (08:57)
[2018-11-04] MEDS: FUROSEMIDE 20 MG TAB PO (08:58)
[2018-11-04] MEDS: METOPROLOL 25 MG TAB PO (08:59)
[2018-11-04] MEDS: AMIODARONE 200 MG TAB PO (12:05)
[2018-11-04] MEDS: MAGNESIUM SULFATE 2 GM/50 ML 50 ML IVPB (13:21)
== END 2018-11-04 16:05 | disposition home health service (06) | DRG 292 ==
LOC: 6WM 03:44
DX: I11.0 Hypertensive heart disease with heart failure (principal); K62.5 Hemorrhage of anus and rectum; F10.288 Alcohol dependence with other alcohol-induced disorder; I50.33 Acute on chronic diastolic (congestive) heart failure; I48.0 Paroxysmal atrial fibrillation; J44.9 Chronic obstructive pulmonary disease, unspecified; E87.6 Hypokalemia; K70.31 Alcoholic cirrhosis of liver with ascites; I27.20 Pulmonary hypertension, unspecified; G62.9 Polyneuropathy, unspecified; K70.0 Alcoholic fatty liver; R07.9 Chest pain, unspecified; Z79.01 Long term (current) use of anticoagulants; Z87.891 Personal history of nicotine dependence
CPT/HCPCS: 71045; 76705; 80048; 80053; 80061; 80069; 80076; 81001; 82550; 82553; 83036; 83735; 83880; 84100; 84443; 84484; 85025; 85049; 85610; 85670; 85730; 93005; 93306; 94664; 97110; 97116; 97162; 97530

== ENCOUNTER 2018-11-07 17:10 | Inpatient (IN) | payer OTHER ==
[2018-11-07] MEDS ORDERED: ACETAMINOPHEN 325 MG TAB PO (19:00)
[2018-11-07] MEDS ORDERED: NITROGLYCERIN (SL) 0.4 MG TAB SL (19:00)
[2018-11-07] MEDS ORDERED: ONDANSETRON 4 MG INJ IV (19:00)
[2018-11-07] MEDS ORDERED: ALBUTEROL HFA 8 GM INHALER INH (19:00)
[2018-11-07] MEDS ORDERED: DOCUSATE SODIUM 100 MG CAP PO (19:00)
[2018-11-07] MEDS ORDERED: NACL 0.9% 3 ML SYG IV (19:00)
[2018-11-07] MEDS ORDERED: MAGNESIUM HYDROXIDE 30ML CUP PO (19:00)
[2018-11-07] MEDS ORDERED: ALBUTEROL 0.083% (NEB) 2.5 MG/3 ML AMP HHN (19:30)
[2018-11-07] MEDS: FUROSEMIDE 20 MG INJ IV (20:29)
[2018-11-07] MEDS: METOPROLOL 25 MG TAB PO (20:30)
[2018-11-08] MEDS: FLUTICASONE/VILANTEROL 100-25 INH ×2 (01:51→09:16)
[2018-11-08] MEDS: FUROSEMIDE 20 MG INJ IV ×2 (06:00→17:52)
[2018-11-08] MEDS: PANTOPRAZOLE (EC) 40 MG TAB PO (06:17)
[2018-11-08 07:01] LABS: ADD MAN DIFF? NO
[2018-11-08 07:03] LABS: WHITE BLOOD COUNT 7.2 10^3/ul (4.8-10.8)
[2018-11-08 07:03] LABS: BASOPHILS % 0.4 % (0.0-2.0); EOSINOPHILS # 0.1 10^3/ul (0.0-0.5); HEMATOCRIT 24.6 % (37.0-47.0); HEMOGLOBIN 8.2 g/dl (12.0-16.0); LYMPHOCYTES # 1.6 10^3/ul (0.8-2.9); LYMPHOCYTES % 21.8 % (15.0-51.0); MEAN CORPUSCULAR HEMOGLOBIN 30.9 pg (29.0-33.0); MEAN CORPUSCULAR HGB CONC 33.3 g/dl (32.0-37.0); MEAN CORPUSCULAR VOLUME 92.8 fl (82.0-101.0); MEAN PLATELET VOLUME 9.7 fl (7.4-10.4); MONOCYTE # 0.7 10^3/ul (0.3-0.9); MONOCYTES % 9.3 % (0.0-11.0); NEUTROPHIL # 4.7 10^3/ul (1.6-7.5); NEUTROPHILS % 66.1 % (39.0-77.0); PLATELET COUNT 278 10^3/UL (140-415); RED BLOOD COUNT 2.65 10^6/ul (4.20-5.40); RED CELL DISTRIBUTION WIDTH 16.8 % (11.5-14.5)
[2018-11-08 07:33] LABS: ALANINE AMINOTRANSFERASE 31 IU/L (13-69); ALBUMIN 2.1 g/dl (3.3-4.9); ALBUMIN/GLOBULIN RATIO 0.61; ALKALINE PHOSPHATASE 88 IU/L (42-121); ANION GAP 7 (5-13); ASPARTATE AMINO TRANSFERASE 45 IU/L (15-46); BILIRUBIN,INDIRECT 0.3 mg/dl (0-1.1); BILIRUBIN,TOTAL 0.3 mg/dl (0.2-1.3); BLOOD UREA NITROGEN 8 mg/dl (7-20); CALCIUM 7.8 mg/dl (8.4-10.2); CARBON DIOXIDE 24 mmol/L (21-31); CHLORIDE 105 mmol/L (97-110); CREATININE 0.53 mg/dl (0.44-1.00); Estimated GFR > 60 mL/min (>60); GLUCOSE 95 mg/dl (70-220); MAGNESIUM 1.7 mg/dl (1.7-2.5); POTASSIUM 3.1 mmol/L (3.5-5.1); SODIUM 136 mmol/L (135-144); TOTAL PROTEIN 5.5 g/dl (6.1-8.1)
[2018-11-08 08:34] LABS: HEMOGLOBIN A1C 4.5 % (0-5.9)
[2018-11-08] MEDS: METOPROLOL 25 MG TAB PO ×2 (09:00→20:25)
[2018-11-08] MEDS ORDERED: FUROSEMIDE 20 MG TAB PO (09:00)
[2018-11-08] MEDS: SPIRONOLACTONE 25 MG TAB PO (09:16)
[2018-11-08] MEDS: AMIODARONE 200 MG TAB PO (09:18)
[2018-11-08] MEDS: POTASSIUM CHLORIDE (SR) 20 MEQ TAB PO (16:08)
[2018-11-08] MEDS: MAGNESIUM SULFATE 2 GM/50 ML 50 ML IVPB (16:15)
[2018-11-08] MEDS: POTASSIUM CHLORIDE 20 MEQ POWDER FOR ORAL SOLN PO (16:18)
[2018-11-09] MEDS: PANTOPRAZOLE (EC) 40 MG TAB PO (05:57)
[2018-11-09] MEDS: FUROSEMIDE 20 MG INJ IV ×2 (05:58→17:27)
[2018-11-09 08:25] LABS: ADD MAN DIFF? NO
[2018-11-09 08:28] LABS: WHITE BLOOD COUNT 7.6 10^3/ul (4.8-10.8)
[2018-11-09 08:28] LABS: BASOPHILS % 0.3 % (0.0-2.0); EOSINOPHILS # 0.1 10^3/ul (0.0-0.5); EOSINOPHILS % 1.6 % (0.0-7.0); HEMATOCRIT 25.1 % (37.0-47.0); HEMOGLOBIN 8.5 g/dl (12.0-16.0); LYMPHOCYTES # 1.8 10^3/ul (0.8-2.9); LYMPHOCYTES % 23.4 % (15.0-51.0); MEAN CORPUSCULAR HGB CONC 33.9 g/dl (32.0-37.0); MEAN CORPUSCULAR VOLUME 91.6 fl (82.0-101.0); MONOCYTE # 0.5 10^3/ul (0.3-0.9); MONOCYTES % 6.9 % (0.0-11.0); NEUTROPHIL # 5.1 10^3/ul (1.6-7.5); NEUTROPHILS % 67.4 % (39.0-77.0); PLATELET COUNT 271 10^3/UL (140-415); RED BLOOD COUNT 2.74 10^6/ul (4.20-5.40); RED CELL DISTRIBUTION WIDTH 16.9 % (11.5-14.5)
[2018-11-09] MEDS: AMIODARONE 200 MG TAB PO (08:38)
[2018-11-09] MEDS: SPIRONOLACTONE 25 MG TAB PO (08:38)
[2018-11-09] MEDS: METOPROLOL 25 MG TAB PO ×2 (08:38→21:17)
[2018-11-09] MEDS: FLUTICASONE/VILANTEROL 100-25 INH (08:38)
[2018-11-09 08:56] LABS: ANION GAP 5 (5-13); BLOOD UREA NITROGEN 7 mg/dl (7-20); CALCIUM 7.6 mg/dl (8.4-10.2); CARBON DIOXIDE 27 mmol/L (21-31); CHLORIDE 103 mmol/L (97-110); CREATININE 0.57 mg/dl (0.44-1.00); Estimated GFR > 60 mL/min (>60); GLUCOSE 87 mg/dl (70-220); MAGNESIUM 1.9 mg/dl (1.7-2.5); POTASSIUM 3.7 mmol/L (3.5-5.1); SODIUM 135 mmol/L (135-144)
[2018-11-10] MEDS: PANTOPRAZOLE (EC) 40 MG TAB PO (05:55)
[2018-11-10] MEDS: FUROSEMIDE 20 MG INJ IV (05:56)
[2018-11-10 06:58] LABS: ADD MAN DIFF? NO
[2018-11-10 07:02] LABS: WHITE BLOOD COUNT 6.4 10^3/ul (4.8-10.8)
[2018-11-10 07:02] LABS: BASOPHILS % 0.5 % (0.0-2.0); EOSINOPHILS # 0.1 10^3/ul (0.0-0.5); EOSINOPHILS % 1.7 % (0.0-7.0); LYMPHOCYTES # 1.8 10^3/ul (0.8-2.9); LYMPHOCYTES % 27.4 % (15.0-51.0); MEAN CORPUSCULAR HEMOGLOBIN 30.5 pg (29.0-33.0); MEAN CORPUSCULAR HGB CONC 33.3 g/dl (32.0-37.0); MEAN CORPUSCULAR VOLUME 91.6 fl (82.0-101.0); MONOCYTE # 0.6 10^3/ul (0.3-0.9); MONOCYTES % 8.6 % (0.0-11.0); NEUTROPHIL # 3.9 10^3/ul (1.6-7.5); NEUTROPHILS % 61.3 % (39.0-77.0); PLATELET COUNT 248 10^3/UL (140-415); RED BLOOD COUNT 2.62 10^6/ul (4.20-5.40)
[2018-11-10 07:22] LABS: ANION GAP 6 (5-13); BLOOD UREA NITROGEN 6 mg/dl (7-20); CALCIUM 7.6 mg/dl (8.4-10.2); CARBON DIOXIDE 27 mmol/L (21-31); CHLORIDE 101 mmol/L (97-110); CREATININE 0.61 mg/dl (0.44-1.00); Estimated GFR > 60 mL/min (>60); GLUCOSE 87 mg/dl (70-220); POTASSIUM 3.3 mmol/L (3.5-5.1); SODIUM 134 mmol/L (135-144)
[2018-11-10 07:26] LABS: PHOSPHORUS 3.8 mg/dl (2.5-4.9)
[2018-11-10 07:26] LABS: MAGNESIUM 1.7 mg/dl (1.7-2.5)
[2018-11-10] MEDS: FLUTICASONE/VILANTEROL 100-25 INH (09:18)
[2018-11-10] MEDS: METOPROLOL 25 MG TAB PO ×2 (09:20→20:10)
[2018-11-10] MEDS: SPIRONOLACTONE 25 MG TAB PO (09:20)
[2018-11-10] MEDS: AMIODARONE 200 MG TAB PO (09:21)
[2018-11-10] MEDS ORDERED: POTASSIUM CHLORIDE (SR) 20 MEQ TAB PO ×2 (14:44→15:17)
[2018-11-10] MEDS: POTASSIUM CHLORIDE 20 MEQ POWDER FOR ORAL SOLN PO (15:38)
[2018-11-10] MEDS: MAGNESIUM CHLORIDE (SR) 64 MG TAB PO (17:55)
[2018-11-11] MEDS: PANTOPRAZOLE (EC) 40 MG TAB PO (06:15)
[2018-11-11 07:52] LABS: ADD MAN DIFF? NO
[2018-11-11 07:59] LABS: BASOPHILS % 0.4 % (0.0-2.0); EOSINOPHILS # 0.1 10^3/ul (0.0-0.5); EOSINOPHILS % 1.5 % (0.0-7.0); HEMATOCRIT 25.8 % (37.0-47.0); HEMOGLOBIN 8.6 g/dl (12.0-16.0); LYMPHOCYTES # 1.9 10^3/ul (0.8-2.9); LYMPHOCYTES % 27.5 % (15.0-51.0); MEAN CORPUSCULAR HEMOGLOBIN 30.3 pg (29.0-33.0); MEAN CORPUSCULAR HGB CONC 33.3 g/dl (32.0-37.0); MEAN CORPUSCULAR VOLUME 90.8 fl (82.0-101.0); MEAN PLATELET VOLUME 9.6 fl (7.4-10.4); MONOCYTE # 0.6 10^3/ul (0.3-0.9); NEUTROPHIL # 4.3 10^3/ul (1.6-7.5); NEUTROPHILS % 62.3 % (39.0-77.0); PLATELET COUNT 249 10^3/UL (140-415); RED BLOOD COUNT 2.84 10^6/ul (4.20-5.40); RED CELL DISTRIBUTION WIDTH 16.9 % (11.5-14.5)
[2018-11-11 07:59] LABS: WHITE BLOOD COUNT 6.9 10^3/ul (4.8-10.8)
[2018-11-11 08:16] LABS: ANION GAP 6 (5-13); BLOOD UREA NITROGEN 6 mg/dl (7-20); CALCIUM 7.9 mg/dl (8.4-10.2); CARBON DIOXIDE 26 mmol/L (21-31); CHLORIDE 102 mmol/L (97-110); CREATININE 0.59 mg/dl (0.44-1.00); Estimated GFR > 60 mL/min (>60); GLUCOSE 90 mg/dl (70-220); POTASSIUM 3.8 mmol/L (3.5-5.1); SODIUM 134 mmol/L (135-144)
[2018-11-11 08:17] LABS: MAGNESIUM 1.8 mg/dl (1.7-2.5)
[2018-11-11 08:17] LABS: PHOSPHORUS 3.5 mg/dl (2.5-4.9)
[2018-11-11] MEDS: FLUTICASONE/VILANTEROL 100-25 INH (08:43)
[2018-11-11] MEDS: METOPROLOL 25 MG TAB PO (08:44)
[2018-11-11] MEDS: AMIODARONE 200 MG TAB PO (08:45)
[2018-11-11] MEDS: SPIRONOLACTONE 25 MG TAB PO (08:45)
[2018-11-11] MEDS: FUROSEMIDE 20 MG TAB PO (11:37)
== END 2018-11-11 18:40 | DRG 308 ==
LOC: TEL 11-10 20:47
DX: I48.0 Paroxysmal atrial fibrillation (principal); I50.33 Acute on chronic diastolic (congestive) heart failure; J44.9 Chronic obstructive pulmonary disease, unspecified; I27.20 Pulmonary hypertension, unspecified; Z91.14 Patient's other noncompliance with medication regimen
CPT/HCPCS: 80048; 80053; 83036; 83735; 84100; 84443; 85025; 87081; 97110; 97116; 97161; 97166

== ENCOUNTER 2018-12-29 11:05 | Inpatient (IN) | payer OTHER ==
[2018-12-29 12:34] LABS: ABNORMAL IP MESSAGE 1; HEMATOCRIT 27.8 % (37.0-47.0); MEAN CORPUSCULAR HEMOGLOBIN 31.7 pg (29.0-33.0); MEAN CORPUSCULAR HGB CONC 32.4 g/dl (32.0-37.0); MEAN CORPUSCULAR VOLUME 97.9 fl (82.0-101.0); MEAN PLATELET VOLUME 10.4 fl (7.4-10.4); PLATELET COUNT 220 10^3/UL (140-415); RED BLOOD COUNT 2.84 10^6/ul (4.20-5.40); RED CELL DISTRIBUTION WIDTH 22.1 % (11.5-14.5)
[2018-12-29 12:34] LABS: WHITE BLOOD COUNT 5.1 10^3/ul (4.8-10.8)
[2018-12-29 12:37] LABS: ADD MAN DIFF? YES; POSITIVE DIFF @See below
[2018-12-29 12:53] LABS: ALANINE AMINOTRANSFERASE 23 IU/L (13-69); ALBUMIN 2.5 g/dl (3.3-4.9); ALKALINE PHOSPHATASE 90 IU/L (42-121); ANION GAP 9 (5-13); ASPARTATE AMINO TRANSFERASE 22 IU/L (15-46); BLOOD UREA NITROGEN 9 mg/dl (7-20); CALCIUM 8.8 mg/dl (8.4-10.2); CARBON DIOXIDE 20 mmol/L (21-31); CHLORIDE 110 mmol/L (97-110); CREATININE 0.64 mg/dl (0.44-1.00); Estimated GFR > 60 mL/min (>60); GLUCOSE 134 mg/dl (70-220); POTASSIUM 3.4 mmol/L (3.5-5.1); SODIUM 139 mmol/L (135-144); TOTAL PROTEIN 5.9 g/dl (6.1-8.1)
[2018-12-29 12:54] LABS: ALBUMIN/GLOBULIN RATIO 0.73; ANISOCYTOSIS 1+ (0-0); BAND NEUTROPHILS % (M) 1 % (0-4); GIANT THROMBO% (M) 9 % (0-0); LYMPHOCYTES % (M) 1 % (15-51); MYELOCYTES #M 0.1 10^3/ul (0.0-0.0); MYELOCYTES % (M) 2 % (0-0); PLATELET ESTIMATE NORMAL; POLYCHROMASIA 2+ (0-0); SEG NEUT #M 4.9 10^3/ul (1.6-7.5); SEGMENTED NEUTROPHILS (M) % 96 % (39-77); SMUDGE%M 32 % (0-0)
[2018-12-29] MEDS ORDERED: ONDANSETRON 4 MG INJ IV ×2 (13:30→15:00)
[2018-12-29] MEDS ORDERED: ACETAMINOPHEN 325 MG TAB PO ×2 (13:30→15:00)
[2018-12-29] MEDS ORDERED: VANCOMYCIN IV PER PHARMACY XX (15:00)
[2018-12-29] MEDS ORDERED: NACL 0.9% 3 ML SYG IV (15:00)
[2018-12-29 15:51] LABS: CREATINE KINASE 20 IU/L (23-200)
[2018-12-29 16:03] LABS: B-TYPE NATRIURETIC PEPTIDE 6160 PG/ML (0-125)
[2018-12-29 16:04] LABS: CK INDEX 5.6; CK-MB 1.11 ng/ml (0.0-2.4); TROPONIN-I 0.031 ng/ml (0.000-0.120)
[2018-12-29] MEDS: CEFEPIME 1GM/50 ML (PMX) 50 ML IVPB ×2 (16:15→22:59)
[2018-12-29] MEDS: METHYLPREDNISOLONE 40 MG INJ IV (16:15)
[2018-12-29] MEDS: LEVALBUTEROL (NEB) 1.25 MG/0.5 ML AMP HHN ×2 (16:29→21:09)
[2018-12-29] MEDS: VANCOMYCIN HCL 1.25 GM in SOD CHLORIDE 0.9% 250 ML IVPB (17:01)
[2018-12-29] MEDS: FUROSEMIDE 40 MG INJ IV (18:13)
[2018-12-29] MEDS: SPIRONOLACTONE 50 MG TAB PO (18:13)
[2018-12-29] MEDS: GUAIFENESIN/DM (SR) TAB PO (20:43)
[2018-12-29] MEDS: ATENOLOL 25 MG TAB PO (20:43)
[2018-12-29] MEDS: LACTULOSE 30ML CUP PO (20:48)
[2018-12-29] MEDS: IPRATROPIUM (NEB) 0.5 MG/2.5 ML AMP HHN (21:09)
[2018-12-29 21:28] LABS: CREATINE KINASE < 20 IU/L (23-200)
[2018-12-29 21:33] LABS: CK-MB 1.61 ng/ml (0.0-2.4)
[2018-12-30] MEDS: LEVALBUTEROL (NEB) 1.25 MG/0.5 ML AMP HHN ×4 (01:07→19:30)
[2018-12-30] MEDS: VANCOMYCIN 1 GM 250 ML IVPB ×2 (04:48→17:23)
[2018-12-30 06:09] LABS: ADD MAN DIFF? NO
[2018-12-30] MEDS: LEVOTHYROXINE 50 MCG TAB PO (06:17)
[2018-12-30] MEDS: SPIRONOLACTONE 50 MG TAB PO ×2 (06:17→17:55)
[2018-12-30 06:20] LABS: WHITE BLOOD COUNT 7.5 10^3/ul (4.8-10.8)
[2018-12-30 06:20] LABS: ABNORMAL IP MESSAGE 1; BASOPHILS % 0.1 % (0.0-2.0); HEMATOCRIT 26.6 % (37.0-47.0); HEMOGLOBIN 8.7 g/dl (12.0-16.0); LYMPHOCYTES # 1.1 10^3/ul (0.8-2.9); LYMPHOCYTES % 15.2 % (15.0-51.0); MEAN CORPUSCULAR HEMOGLOBIN 31.5 pg (29.0-33.0); MEAN CORPUSCULAR HGB CONC 32.7 g/dl (32.0-37.0); MEAN CORPUSCULAR VOLUME 96.4 fl (82.0-101.0); MEAN PLATELET VOLUME 10.8 fl (7.4-10.4); MONOCYTE # 0.4 10^3/ul (0.3-0.9); MONOCYTES % 5.7 % (0.0-11.0); NEUTROPHIL # 5.9 10^3/ul (1.6-7.5); NEUTROPHILS % 78.6 % (39.0-77.0); PLATELET COUNT 221 10^3/UL (140-415); RED BLOOD COUNT 2.76 10^6/ul (4.20-5.40); RED CELL DISTRIBUTION WIDTH 22.2 % (11.5-14.5)
[2018-12-30] MEDS: FUROSEMIDE 40 MG INJ IV ×2 (06:21→17:55)
[2018-12-30 06:27] LABS: POSITIVE DIFF @See below
[2018-12-30 06:51] LABS: ALANINE AMINOTRANSFERASE 24 IU/L (13-69); ALBUMIN 2.4 g/dl (3.3-4.9); ALBUMIN/GLOBULIN RATIO 0.77; ALKALINE PHOSPHATASE 70 IU/L (42-121); ANION GAP 8 (5-13); ASPARTATE AMINO TRANSFERASE 34 IU/L (15-46); BILIRUBIN,INDIRECT 0.1 mg/dl (0-1.1); BILIRUBIN,TOTAL 0.1 mg/dl (0.2-1.3); BLOOD UREA NITROGEN 12 mg/dl (7-20); CALCIUM 8.5 mg/dl (8.4-10.2); CARBON DIOXIDE 23 mmol/L (21-31); CHLORIDE 109 mmol/L (97-110); CHOL/HDL RATIO 3.3 RATIO; CHOLESTEROL 63 mg/dl (100-200); Estimated GFR > 60 mL/min (>60); GLUCOSE 127 mg/dl (70-220); HDL CHOLESTEROL 19 mg/dl (35-98); LDL CHOLESTEROL,CALCULATED 27 mg/dl; MAGNESIUM 1.5 mg/dl (1.7-2.5); PHOSPHORUS 4.1 mg/dl (2.5-4.9); POTASSIUM 3.6 mmol/L (3.5-5.1); SODIUM 140 mmol/L (135-144); TOTAL PROTEIN 5.5 g/dl (6.1-8.1); TRIGLYCERIDES 83 mg/dl (0-149)
[2018-12-30] MEDS: IPRATROPIUM (NEB) 0.5 MG/2.5 ML AMP HHN ×3 (08:10→19:30)
[2018-12-30] MEDS: LACTULOSE 30ML CUP PO ×2 (08:28→20:46)
[2018-12-30] MEDS: CEFEPIME 1GM/50 ML (PMX) 50 ML IVPB ×2 (08:28→20:46)
[2018-12-30] MEDS: PANTOPRAZOLE (EC) 40 MG TAB PO (08:29)
[2018-12-30] MEDS: TIOTROPIUM 18 MCG CAPSULE INHA DEV INH (08:29)
[2018-12-30] MEDS: GUAIFENESIN/DM (SR) TAB PO ×2 (08:29→20:45)
[2018-12-30] MEDS: AMIODARONE 200 MG TAB PO (08:29)
[2018-12-30] MEDS: ENOXAPARIN 40 MG/0.4 ML SYG SC (08:37)
[2018-12-30] MEDS: ATENOLOL 25 MG TAB PO ×2 (09:04→20:53)
[2018-12-30] MEDS ORDERED: DIGOXIN 0.25 MG TAB PO (13:00)
[2018-12-30] MEDS ORDERED: GUAIFENESIN/DM 5ML CUP PO (17:30)
[2018-12-30] MEDS: MAGNESIUM SULFATE 2 GM/50 ML 50 ML IVPB (20:46)
[2018-12-31] MEDS: LEVALBUTEROL (NEB) 1.25 MG/0.5 ML AMP HHN ×3 (01:01→14:47)
[2018-12-31] MEDS: SPIRONOLACTONE 50 MG TAB PO ×2 (05:45→17:46)
[2018-12-31] MEDS: FUROSEMIDE 40 MG INJ IV ×2 (05:45→17:47)
[2018-12-31 06:23] LABS: ADD MAN DIFF? NO
[2018-12-31 06:28] LABS: BASOPHILS % 0.1 % (0.0-2.0); EOSINOPHILS % 0.2 % (0.0-7.0); HEMATOCRIT 27.1 % (37.0-47.0); HEMOGLOBIN 8.6 g/dl (12.0-16.0); LYMPHOCYTES # 1.4 10^3/ul (0.8-2.9); LYMPHOCYTES % 13.7 % (15.0-51.0); MEAN CORPUSCULAR HEMOGLOBIN 30.9 pg (29.0-33.0); MEAN CORPUSCULAR HGB CONC 31.7 g/dl (32.0-37.0); MEAN CORPUSCULAR VOLUME 97.5 fl (82.0-101.0); MEAN PLATELET VOLUME 10.7 fl (7.4-10.4); MONOCYTE # 0.8 10^3/ul (0.3-0.9); NEUTROPHIL # 8.1 10^3/ul (1.6-7.5); NEUTROPHILS % 77.4 % (39.0-77.0); PLATELET COUNT 248 10^3/UL (140-415); RED BLOOD COUNT 2.78 10^6/ul (4.20-5.40)
[2018-12-31 06:28] LABS: WHITE BLOOD COUNT 10.5 10^3/ul (4.8-10.8)
[2018-12-31 06:46] LABS: INR 1.37; PT RATIO 1.3
[2018-12-31 06:57] LABS: MAGNESIUM 2.2 mg/dl (1.7-2.5)
[2018-12-31 06:57] LABS: PHOSPHORUS 3.7 mg/dl (2.5-4.9)
[2018-12-31] MEDS: LEVOTHYROXINE 50 MCG TAB PO (07:02)
[2018-12-31 07:12] LABS: ALANINE AMINOTRANSFERASE 21 IU/L (13-69); ALBUMIN 2.3 g/dl (3.3-4.9); ALBUMIN/GLOBULIN RATIO 0.79; ALKALINE PHOSPHATASE 85 IU/L (42-121); ANION GAP 7 (5-13); ASPARTATE AMINO TRANSFERASE 26 IU/L (15-46); BILIRUBIN,INDIRECT 0.1 mg/dl (0-1.1); BILIRUBIN,TOTAL 0.1 mg/dl (0.2-1.3); BLOOD UREA NITROGEN 13 mg/dl (7-20); CALCIUM 8.6 mg/dl (8.4-10.2); CARBON DIOXIDE 24 mmol/L (21-31); CHLORIDE 110 mmol/L (97-110); CREATININE 0.68 mg/dl (0.44-1.00); Estimated GFR > 60 mL/min (>60); GLUCOSE 99 mg/dl (70-220); SODIUM 141 mmol/L (135-144); TOTAL PROTEIN 5.2 g/dl (6.1-8.1)
[2018-12-31 07:20] LABS: POTASSIUM 2.9 mmol/L (3.5-5.1)
[2018-12-31 07:20] LABS: HEMOGLOBIN A1C 4.9 % (0-5.9)
[2018-12-31] MEDS: PANTOPRAZOLE (EC) 40 MG TAB PO (08:42)
[2018-12-31] MEDS: TIOTROPIUM 18 MCG CAPSULE INHA DEV INH (08:42)
[2018-12-31] MEDS: AMIODARONE 200 MG TAB PO (08:42)
[2018-12-31] MEDS: THIAMINE 100 MG TAB PO (08:43)
[2018-12-31] MEDS: GUAIFENESIN/DM (SR) TAB PO ×2 (08:43→21:53)
[2018-12-31] MEDS: CEFEPIME 1GM/50 ML (PMX) 50 ML IVPB ×2 (08:44→21:53)
[2018-12-31] MEDS: ATENOLOL 25 MG TAB PO ×2 (08:44→21:54)
[2018-12-31] MEDS: POTASSIUM CHLORIDE (SR) 20 MEQ TAB PO ×2 (08:44→12:12)
[2018-12-31] MEDS: LACTULOSE 30ML CUP PO (08:45)
[2018-12-31] MEDS: ENOXAPARIN 40 MG/0.4 ML SYG SC (09:08)
[2018-12-31] MEDS: IPRATROPIUM (NEB) 0.5 MG/2.5 ML AMP HHN ×2 (09:18→14:47)
[2018-12-31] MEDS: SOD CHLORIDE 0.9% 250 ML IV (11:36)
[2018-12-31] MEDS: SOD CHLORIDE 0.9% 500 ML IV (17:57)
[2018-12-31] MEDS: ALBUMIN HUMAN 25% 100 ML IV (19:29)
[2018-12-31] MEDS ORDERED: POTASSIUM CHLORIDE 20 MEQ POWDER FOR ORAL SOLN PO (20:00)
[2018-12-31 20:37] LABS: POTASSIUM 3.7 mmol/L (3.5-5.1)
[2019-01-01] MEDS: IPRATROPIUM (NEB) 0.5 MG/2.5 ML AMP HHN ×3 (00:12→15:50)
[2019-01-01] MEDS: LEVALBUTEROL (NEB) 1.25 MG/0.5 ML AMP HHN ×4 (00:12→22:24)
[2019-01-01] MEDS: FUROSEMIDE 40 MG INJ IV ×3 (05:35→18:02)
[2019-01-01] MEDS: SPIRONOLACTONE 50 MG TAB PO ×2 (05:35→18:02)
[2019-01-01 06:27] LABS: ADD MAN DIFF? NO
[2019-01-01 06:36] LABS: WHITE BLOOD COUNT 7.8 10^3/ul (4.8-10.8)
[2019-01-01 06:36] LABS: ABNORMAL IP MESSAGE 1; EOSINOPHILS % 0.5 % (0.0-7.0); HEMATOCRIT 26.4 % (37.0-47.0); HEMOGLOBIN 8.6 g/dl (12.0-16.0); LYMPHOCYTES # 1.4 10^3/ul (0.8-2.9); LYMPHOCYTES % 17.3 % (15.0-51.0); MEAN CORPUSCULAR HGB CONC 32.6 g/dl (32.0-37.0); MEAN CORPUSCULAR VOLUME 98.1 fl (82.0-101.0); MEAN PLATELET VOLUME 10.9 fl (7.4-10.4); MONOCYTE # 0.6 10^3/ul (0.3-0.9); MONOCYTES % 8.2 % (0.0-11.0); NEUTROPHIL # 5.7 10^3/ul (1.6-7.5); NEUTROPHILS % 73.2 % (39.0-77.0); PLATELET COUNT 227 10^3/UL (140-415); RED BLOOD COUNT 2.69 10^6/ul (4.20-5.40); RED CELL DISTRIBUTION WIDTH 22.2 % (11.5-14.5)
[2019-01-01 06:44] LABS: POSITIVE DIFF @See below
[2019-01-01] MEDS: LEVOTHYROXINE 50 MCG TAB PO (07:04)
[2019-01-01 07:11] LABS: AMMONIA 22 umol/l (9-30)
[2019-01-01 07:48] LABS: ALANINE AMINOTRANSFERASE 36 IU/L (13-69); ALBUMIN 2.5 g/dl (3.3-4.9); ALKALINE PHOSPHATASE 94 IU/L (42-121); ANION GAP 5 (5-13); ASPARTATE AMINO TRANSFERASE 31 IU/L (15-46); BILIRUBIN,INDIRECT 0.1 mg/dl (0-1.1); BILIRUBIN,TOTAL 0.1 mg/dl (0.2-1.3); BLOOD UREA NITROGEN 11 mg/dl (7-20); CALCIUM 9.2 mg/dl (8.4-10.2); CARBON DIOXIDE 26 mmol/L (21-31); CHLORIDE 113 mmol/L (97-110); CREATININE 0.58 mg/dl (0.44-1.00); Estimated GFR > 60 mL/min (>60); GLUCOSE 97 mg/dl (70-220); POTASSIUM 3.6 mmol/L (3.5-5.1); SODIUM 144 mmol/L (135-144); TOTAL PROTEIN 5.6 g/dl (6.1-8.1)
[2019-01-01] MEDS: CEFEPIME 1GM/50 ML (PMX) 50 ML IVPB ×2 (08:23→21:21)
[2019-01-01] MEDS: AMIODARONE 200 MG TAB PO (08:23)
[2019-01-01] MEDS: PANTOPRAZOLE (EC) 40 MG TAB PO (08:24)
[2019-01-01] MEDS: THIAMINE 100 MG TAB PO (08:24)
[2019-01-01] MEDS: GUAIFENESIN/DM (SR) TAB PO ×2 (08:24→21:21)
[2019-01-01] MEDS: ATENOLOL 25 MG TAB PO ×2 (08:24→21:22)
[2019-01-01] MEDS: TIOTROPIUM 18 MCG CAPSULE INHA DEV INH (08:24)
[2019-01-01] MEDS: LACTULOSE 30ML CUP PO ×2 (08:25→21:21)
[2019-01-01] MEDS: ENOXAPARIN 40 MG/0.4 ML SYG SC (09:14)
[2019-01-01] MEDS: LIDOCAINE 1% (MPF) 5 ML VIAL (18:01)
[2019-01-01] MEDS: ALBUMIN HUMAN 25% 100 ML IV (18:02)
[2019-01-02 00:31] LABS: AADO2 Arterial 69.8 mmHg (7.0-24.0); Arterial Base Excess -3.4 mmol/L (-3.0-3); Arterial COHb 0.3 % (0.0-3.0); Arterial Fraction of Oxyhgb 94.5 % (93.0-99.0); Arterial HCO3 23.4 mmol/L (22.0-26.0); Arterial MetHb 0.2 % (0.0-1.5); Arterial pCO2 50.2 mmhg (35-45); Blood Gas IEPAP 15/5; MODE MASK - BIPAP; Site Right Brachial
[2019-01-02] MEDS: IPRATROPIUM (NEB) 0.5 MG/2.5 ML AMP HHN ×3 (00:46→16:00)
[2019-01-02] MEDS: LEVALBUTEROL (NEB) 1.25 MG/0.5 ML AMP HHN ×4 (00:46→16:00)
[2019-01-02] MEDS: ALBUMIN HUMAN 25% 100 ML IV ×3 (01:37→18:55)
[2019-01-02 05:45] LABS: AADO2 Arterial 61.6 mmHg (7.0-24.0); Arterial Base Excess -1.2 mmol/L (-3.0-3); Arterial Blood Gas Oxygen Sat 97.3 mmHG (95.0-98.0); Arterial COHb 0.3 % (0.0-3.0); Arterial Fraction of Oxyhgb 96.6 % (93.0-99.0); Arterial HCO3 24.1 mmol/L (22.0-26.0); Arterial MetHb 0.4 % (0.0-1.5); Arterial pCO2 42.5 mmhg (35-45); Blood Gas IEPAP 15/5; MODE MASK - BIPAP; Site Right Brachial
[2019-01-02 06:18] LABS: ADD MAN DIFF? NO
[2019-01-02 06:23] LABS: WHITE BLOOD COUNT 8.6 10^3/ul (4.8-10.8)
[2019-01-02 06:23] LABS: ABNORMAL IP MESSAGE 1; BASOPHILS % 0.1 % (0.0-2.0); HEMATOCRIT 25.9 % (37.0-47.0); HEMOGLOBIN 8.1 g/dl (12.0-16.0); LYMPHOCYTES # 1.6 10^3/ul (0.8-2.9); LYMPHOCYTES % 18.9 % (15.0-51.0); MEAN CORPUSCULAR HEMOGLOBIN 31.9 pg (29.0-33.0); MEAN CORPUSCULAR HGB CONC 31.3 g/dl (32.0-37.0); MEAN PLATELET VOLUME 11.1 fl (7.4-10.4); MONOCYTE # 0.6 10^3/ul (0.3-0.9); MONOCYTES % 6.9 % (0.0-11.0); NEUTROPHIL # 6.3 10^3/ul (1.6-7.5); NEUTROPHILS % 73.2 % (39.0-77.0); PLATELET COUNT 218 10^3/UL (140-415); RED BLOOD COUNT 2.54 10^6/ul (4.20-5.40); RED CELL DISTRIBUTION WIDTH 22.6 % (11.5-14.5)
[2019-01-02 06:26] LABS: POSITIVE DIFF @See below
[2019-01-02 06:50] LABS: PROTIME 17.3 Sec (11.9-14.9); PT RATIO 1.4
[2019-01-02] MEDS: LEVOTHYROXINE 50 MCG TAB PO (07:02)
[2019-01-02 07:03] LABS: ALANINE AMINOTRANSFERASE 22 IU/L (13-69); ALBUMIN 3.2 g/dl (3.3-4.9); ALBUMIN/GLOBULIN RATIO 1.23; ALKALINE PHOSPHATASE 83 IU/L (42-121); ANION GAP 9 (5-13); ASPARTATE AMINO TRANSFERASE 24 IU/L (15-46); BILIRUBIN,INDIRECT 0.1 mg/dl (0-1.1); BILIRUBIN,TOTAL 0.1 mg/dl (0.2-1.3); BLOOD UREA NITROGEN 12 mg/dl (7-20); CALCIUM 9.5 mg/dl (8.4-10.2); CARBON DIOXIDE 25 mmol/L (21-31); CHLORIDE 113 mmol/L (97-110); CREATININE 0.68 mg/dl (0.44-1.00); Estimated GFR > 60 mL/min (>60); GLUCOSE 98 mg/dl (70-220); POTASSIUM 3.5 mmol/L (3.5-5.1); SODIUM 147 mmol/L (135-144); TOTAL PROTEIN 5.8 g/dl (6.1-8.1)
[2019-01-02] MEDS: FUROSEMIDE 40 MG INJ IV ×3 (07:03→21:00)
[2019-01-02] MEDS: SPIRONOLACTONE 50 MG TAB PO ×2 (07:03→18:54)
[2019-01-02 07:04] LABS: PHOSPHORUS 3.6 mg/dl (2.5-4.9)
[2019-01-02 07:04] LABS: MAGNESIUM 1.9 mg/dl (1.7-2.5)
[2019-01-02 07:08] LABS: AMMONIA 41 umol/l (9-30)
[2019-01-02] MEDS: AMIODARONE 200 MG TAB PO (08:17)
[2019-01-02] MEDS: CEFEPIME 1GM/50 ML (PMX) 50 ML IVPB ×2 (08:18→21:00)
[2019-01-02] MEDS: PANTOPRAZOLE (EC) 40 MG TAB PO (08:18)
[2019-01-02] MEDS: THIAMINE 100 MG TAB PO (08:18)
[2019-01-02] MEDS: GUAIFENESIN/DM (SR) TAB PO ×2 (08:18→20:59)
[2019-01-02] MEDS: TIOTROPIUM 18 MCG CAPSULE INHA DEV INH (08:20)
[2019-01-02] MEDS: LACTULOSE 30ML CUP PO ×2 (08:21→20:59)
[2019-01-02] MEDS: traMADol 50 MG TAB PO (11:34)
[2019-01-03] MEDS: IPRATROPIUM (NEB) 0.5 MG/2.5 ML AMP HHN ×2 (00:12→07:34)
[2019-01-03] MEDS: LEVALBUTEROL (NEB) 1.25 MG/0.5 ML AMP HHN ×2 (00:13→07:34)
[2019-01-03] MEDS: ALBUMIN HUMAN 25% 100 ML IV (00:24)
[2019-01-03 05:53] LABS: ADD MAN DIFF? NO
[2019-01-03 06:00] LABS: ABNORMAL IP MESSAGE 1; BASOPHILS % 0.1 % (0.0-2.0); EOSINOPHILS % 0.5 % (0.0-7.0); HEMATOCRIT 25.2 % (37.0-47.0); HEMOGLOBIN 7.8 g/dl (12.0-16.0); LYMPHOCYTES # 1.6 10^3/ul (0.8-2.9); LYMPHOCYTES % 17.5 % (15.0-51.0); MEAN CORPUSCULAR HEMOGLOBIN 30.8 pg (29.0-33.0); MEAN CORPUSCULAR VOLUME 99.6 fl (82.0-101.0); MEAN PLATELET VOLUME 10.8 fl (7.4-10.4); MONOCYTE # 0.6 10^3/ul (0.3-0.9); NEUTROPHIL # 6.5 10^3/ul (1.6-7.5); NEUTROPHILS % 73.3 % (39.0-77.0); PLATELET COUNT 214 10^3/UL (140-415); RED BLOOD COUNT 2.53 10^6/ul (4.20-5.40); RED CELL DISTRIBUTION WIDTH 22.5 % (11.5-14.5)
[2019-01-03 06:00] LABS: WHITE BLOOD COUNT 8.9 10^3/ul (4.8-10.8)
[2019-01-03 06:19] LABS: POSITIVE DIFF @See below
[2019-01-03 06:41] LABS: ANION GAP 9 (5-13); BLOOD UREA NITROGEN 12 mg/dl (7-20); CALCIUM 9.7 mg/dl (8.4-10.2); CARBON DIOXIDE 26 mmol/L (21-31); CHLORIDE 115 mmol/L (97-110); CREATININE 0.95 mg/dl (0.44-1.00); Estimated GFR 60 mL/min (>60); GLUCOSE 104 mg/dl (70-220); SODIUM 150 mmol/L (135-144)
[2019-01-03 06:46] LABS: AMMONIA 19 umol/l (9-30)
[2019-01-03] MEDS: LEVOTHYROXINE 50 MCG TAB PO (07:01)
[2019-01-03] MEDS: FUROSEMIDE 40 MG INJ IV (07:02)
[2019-01-03] MEDS: SPIRONOLACTONE 50 MG TAB PO (07:02)
[2019-01-03 07:43] LABS: POTASSIUM 2.9 mmol/L (3.5-5.1)
[2019-01-03] MEDS: POTASSIUM CHLORIDE (SR) 20 MEQ TAB PO (08:15)
[2019-01-03] MEDS: TIOTROPIUM 18 MCG CAPSULE INHA DEV INH (08:15)
[2019-01-03] MEDS: PANTOPRAZOLE (EC) 40 MG TAB PO (08:19)
[2019-01-03] MEDS: LACTULOSE 30ML CUP PO (08:19)
[2019-01-03] MEDS: AMIODARONE 200 MG TAB PO (08:20)
[2019-01-03] MEDS: GUAIFENESIN/DM (SR) TAB PO (08:20)
[2019-01-03] MEDS: THIAMINE 100 MG TAB PO (08:21)
[2019-01-03] MEDS ORDERED: POTASSIUM CHLORIDE 100 ML IVPB (08:30)
[2019-01-03] MEDS: CEFEPIME 1GM/50 ML (PMX) 50 ML IVPB (08:32)
[2019-01-03] MEDS: ENOXAPARIN 40 MG/0.4 ML SYG SC (09:00)
[2019-01-03] MEDS: POTASSIUM CHLORIDE 100 ML IVPB (10:03)
[2019-01-03] MEDS ORDERED: MAGNESIUM SULFATE 2 GM/50 ML 50 ML IVPB (14:30)
[2019-01-03] MEDS ORDERED: DEXTROSE 5% 1,000 ML IV (14:30)
[2019-01-03 14:49] LABS: POTASSIUM 3.7 mmol/L (3.5-5.1)
[2019-01-03] MEDS ORDERED: LORAZEPAM 2 MG INJ IV (15:00)
[2019-01-03] MEDS ORDERED: ATROPINE 1% 5 ML OPH SL (15:00)
[2019-01-03] MEDS ORDERED: BISACODYL 10 MG SUPP PR (15:00)
[2019-01-03] MEDS: SCOPOLAMINE 1.5 MG PATCH TRANSDERM (17:06)
[2019-01-03] MEDS: morphine 2 MG INJ IV (17:07)
[2019-01-04] MEDS: morphine 2 MG INJ IV ×5 (00:24→22:10)
[2019-01-04] MEDS ORDERED: FUROSEMIDE 20 MG INJ IV (06:00)
[2019-01-05] MEDS: ALBUTEROL/IPRATROPIUM (NEB) 3 ML AMP HHN (09:21)
[2019-01-05] MEDS: morphine 2 MG INJ IV (18:08)
[2019-01-06] MEDS: morphine 2 MG INJ IV ×3 (06:08→20:55)
[2019-01-06] MEDS: SCOPOLAMINE 1.5 MG PATCH TRANSDERM (15:52)
[2019-01-07] MEDS: morphine 2 MG INJ IV ×2 (09:33→13:53)
[2019-01-07] MEDS: ALBUTEROL/IPRATROPIUM (NEB) 3 ML AMP HHN (14:00)
== END 2019-01-07 14:20 | DRG 291 ==
LOC: MS1 01-04 02:02 → E/R 11:05 → 6WM 13:04
PROC: 0W9G3ZZ Drainage of Peritoneal Cavity, Percutaneous Approach (ICD-10-PCS; principal; 2019-01-01)
PROC: 5A09457 Assistance with Respiratory Ventilation, 24-96 Consecutive Hours, Continuous Positive Airway Pressure (ICD-10-PCS; 2019-01-01)
PROC: 3E0F7GC Introduction of Other Therapeutic Substance into Respiratory Tract, Via Natural or Artificial Opening (ICD-10-PCS; 2019-01-04)
DX: I11.0 Hypertensive heart disease with heart failure (principal); J18.9 Pneumonia, unspecified organism; J96.00 Acute respiratory failure, unspecified whether with hypoxia or hypercapnia; J44.1 Chronic obstructive pulmonary disease with (acute) exacerbation; D68.69 Other thrombophilia; I27.20 Pulmonary hypertension, unspecified; K70.31 Alcoholic cirrhosis of liver with ascites; I48.0 Paroxysmal atrial fibrillation; Z79.01 Long term (current) use of anticoagulants; Z95.1 Presence of aortocoronary bypass graft; I50.33 Acute on chronic diastolic (congestive) heart failure; Y95 Nosocomial condition; R49.1 Aphonia; I25.10 Atherosclerotic heart disease of native coronary artery without angina pectoris; E87.6 Hypokalemia; K21.9 Gastro-esophageal reflux disease without esophagitis; F10.20 Alcohol dependence, uncomplicated; Z66 Do not resuscitate; Y90.9 Presence of alcohol in blood, level not specified; R62.7 Adult failure to thrive; Z68.22 Body mass index [BMI] 22.0-22.9, adult; Z74.01 Bed confinement status; Z87.891 Personal history of nicotine dependence
CPT/HCPCS: 36600; 70360; 70450; 71045; 76705; 80048; 80053; 80061; 82140; 82550; 82553; 82803; 83036; 83735; 83880; 84100; 84132; 84443; 84484; 85025; 85610; 87400; 93005; 93970; 94640; 94660; 94664; 99285-25